=== PATIENT | female | born 1940 | race Caucasian/White ===

== ENCOUNTER 2022-07-16 18:41 | Emergency (ER) | payer MEDICARE, SELFPAY ==
--- NOTE | ~2022-07-16 | CT_ITS ---
EXAMINATION: CT HEAD WITHOUT CONTRAST CT CERVICAL SPINE WITHOUT CONTRAST CLINICAL INFORMATION: Trauma. COMPARISON: None available. TECHNIQUE: Contiguous axial imaging was performed from the skull base to vertex without intravenous administration of contrast. Contiguous axial imaging was performed from the upper chest through the skull base without intravenous administration of contrast. Coronal and sagittal reformats were obtained at the acquisition workstation. This CT examination was performed using dose optimization techniques as appropriate, variously including the following: *Automated exposure control. *Adjustment of mA and/or kV according to patient size (this includes techniques or standardized protocols for targeted exams where dose is matched to indication/reason for exam; i.e. extremities or head). *Use of iterative reconstruction technique. DLP: 961 mGy-cm FINDINGS: Head: There is no evidence of acute intracranial hemorrhage or edematous territorial infarction. Lynch-white matter differentiation is preserved. Scattered and partially confluent hypoattenuation in the periventricular and deep white matter are consistent with moderate microangiopathy. Proportional prominence of the ventricles and sulcal spaces without evidence of obstructive hydrocephalus. No abnormal mass effect or midline shift. No extra-axial fluid collections. Calcific atherosclerotic disease of the intracranial internal carotid arteries. No hyperdense vessel sign. No acute soft tissue or osseous abnormalities. Mild mucosal thickening of the paranasal sinuses. Moderate rightward nasal septal deviation. The mastoid air cells and middle ear cavities are clear. Bilateral lens extractions. Cervical Spine: The atlantooccipital and atlantoaxial articulations remain well aligned. Straightening of the normal cervical lordosis. Mild degenerative anterolistheses of C5 on C6 and C7 on T1. Ankylosis of C3-C4. No evidence of acute fracture or subluxation. The vertebral body heights are maintained. Advanced degenerative disc disease at C5-C6 and C6-C7. Moderate degenerative disc disease at all additional levels. Facet and uncovertebral joint arthropathy leads osseous encroachment on the neural foramina at C4-C5 and C5-C6. There is no prevertebral soft tissue swelling. The thyroid gland and remaining cervical soft tissues are within normal limits. The lung apices demonstrate no abnormalities. CT/CT cervical spine wo IV con IMPRESSION: 1. No evidence of acute intracranial hemorrhage or edematous territorial infarction. Moderate underlying microangiopathy and generalized cerebral volume loss. 2. No evidence of acute fracture or traumatic subluxation of the cervical spine. Moderate multilevel degenerative spondyloarthropathy of the cervical spine.
--- NOTE | ~2022-07-16 | XR_ITS ---
EXAMINATION: Chest, dorsal and lumbar spine. CLINICAL INDICATION: Weakness. COMPARISON: None. TECHNIQUE: Lumbar spine 3 views. Thoracic spine 3 views. Chest one view. FINDINGS: Chest: The lungs are hypoexpanded but clear of acute process. There is no pleural effusion. Heart size and pulmonary vascularity is normal. No gross bony abnormality seen. Dorsal spine. There is maintained thoracic kyphosis. The vertebral heights, alignment and disc heights are normal. No acute fracture, lytic or sclerotic process seen. The paravertebral soft tissues are normal. Lumbar spine: There is normal lumbar lordosis. There is grade 1 anterolisthesis L4 L4 L5 and mild loss of L5-S1 and T12/L1 disc heights. No aggressive lytic or sclerotic process seen. XR/XR chest 1V IMPRESSION: 1. Unremarkable chest exam. 2. Unremarkable dorsal spine exam. 3. Grade 1 anterolisthesis L4 over L5. Mild degenerative disc changes L5-S1 and T12-L1 disc levels. No acute fracture seen.
--- NOTE | ~2022-07-16 | XR_ITS ---
EXAMINATION: Chest, dorsal and lumbar spine. CLINICAL INDICATION: Weakness. COMPARISON: None. TECHNIQUE: Lumbar spine 3 views. Thoracic spine 3 views. Chest one view. FINDINGS: Chest: The lungs are hypoexpanded but clear of acute process. There is no pleural effusion. Heart size and pulmonary vascularity is normal. No gross bony abnormality seen. Dorsal spine. There is maintained thoracic kyphosis. The vertebral heights, alignment and disc heights are normal. No acute fracture, lytic or sclerotic process seen. The paravertebral soft tissues are normal. Lumbar spine: There is normal lumbar lordosis. There is grade 1 anterolisthesis L4 L4 L5 and mild loss of L5-S1 and T12/L1 disc heights. No aggressive lytic or sclerotic process seen. XR/XR lumbar spine 2-3V IMPRESSION: 1. Unremarkable chest exam. 2. Unremarkable dorsal spine exam. 3. Grade 1 anterolisthesis L4 over L5. Mild degenerative disc changes L5-S1 and T12-L1 disc levels. No acute fracture seen.
--- NOTE | ~2022-07-16 | XR_ITS ---
EXAMINATION: Chest, dorsal and lumbar spine. CLINICAL INDICATION: Weakness. COMPARISON: None. TECHNIQUE: Lumbar spine 3 views. Thoracic spine 3 views. Chest one view. FINDINGS: Chest: The lungs are hypoexpanded but clear of acute process. There is no pleural effusion. Heart size and pulmonary vascularity is normal. No gross bony abnormality seen. Dorsal spine. There is maintained thoracic kyphosis. The vertebral heights, alignment and disc heights are normal. No acute fracture, lytic or sclerotic process seen. The paravertebral soft tissues are normal. Lumbar spine: There is normal lumbar lordosis. There is grade 1 anterolisthesis L4 L4 L5 and mild loss of L5-S1 and T12/L1 disc heights. No aggressive lytic or sclerotic process seen. XR/XR thoracic spine 3V IMPRESSION: 1. Unremarkable chest exam. 2. Unremarkable dorsal spine exam. 3. Grade 1 anterolisthesis L4 over L5. Mild degenerative disc changes L5-S1 and T12-L1 disc levels. No acute fracture seen.
[2022-07-16 18:49] VITALS: BP 120/66; BP 154/75; PULSE 61; PULSE 68; RESP 16; TEMP 36.6; O2SAT 98; O2SAT 99; BMI 26.4
--- NOTE | 2022-07-16 19:02 | ECG_ITS ---
Test Reason : FALL Blood Pressure : / mmHG Vent. Rate : 057 BPM Atrial Rate : 057 BPM P-R Int : 218 ms QRS Dur : 088 ms QT Int : 442 ms P-R-T Axes : 020 -12 -01 degrees QTc Int : 430 ms Sinus bradycardia with marked sinus arrhythmia with 1st degree A-V block Otherwise normal ECG No previous ECGs available Referred By: Guanako Grace Electronically Signed By:Ad Jones
--- NOTE | 2022-07-16 19:10 | ED_ITS ---
HPI - General Adult General Chief complaint: Fall Stated complaint: fall Time Seen by Provider: 07/16/22 18:44 Source: patient, EMS and RN notes reviewed Mode of arrival: EMS Limitations: no limitations History of Present Illness HPI narrative: 82-year-old female presents for evaluation after a fall. She states that she has been very stressed. She states that she has chronic right knee pain and takes Percocet for it. She also drink alcohol due to her stress She states that when she got up to go to the bathroom she walked out of the room and then ?lost my balance and fell. ? She does state that her had mentioned he want to call the ambulance prior to the patient getting up falling For the patient she states that the told her ?you look peculiar. ? The patient did not complain of any chest pain, dizziness, headaches or anything prior to her fall Patient reports that she is stressed about in issue with her car, her family visiting from [place], her had a recent surgery due to cancer. She states this led her to drink alcohol tonight at dinner but she usually does not She denies any loss of consciousness when she fell but does admit that she hit the back of her head. She complains of mid to lower back pain Denies any numbness or tingling Related Data Allergies Allergy/AdvReac Type Severity Reaction Status Date / Time Tetanus Vaccines and Toxoid Allergy Unknown UNK Unverified 12/07/19 15:03 [TETANUS] Review of Systems Constitutional: Constitutional: Reports as per HPI, Denies chills, Denies fat igue, Denies fever(s) and Denies headache(s) ENT: Denies headache(s) Cardiovascular: Cardiovascular: Denies chest pain and Denies dyspnea Respiratory: Respiratory: Denies cough and Denies dyspnea Gastrointestinal: Gastrointestinal: Denies abdominal pain, Denies constipation and Denies vomiting Genitourinary: Genitourinary: Denies dysuria Musculoskeletal: Musculoskeletal: Reports back pain and Reports arthralgias (Right knee pain) Neurologic: Denies headache(s) and Denies focal weakness Endocrine: Endocrine: Denies fatigue [facility] Social History Social History Advance Directives: No Advance Directives Information Provided: No Physical Exam ED Vital Signs: Vital Signs - 24 hr 07/16/22 18:49 07/16/22 19:20 07/16/22 20:53 Temperature 98 F 97.9 F 98.4 F Pulse Rate 61 57 62 Respiratory Rate 16 16 13 Blood Pressure 154/75 H 149/83 H 144/84 H Pulse Oximetry 98 97 96 Oxygen Delivery Method Room Air Room Air BMI result Body Mass Index 26.4 Const General: healthy appearing, comfortable, no acute distress, alert and awake Nutritional Appearance: well nourished Orientation/consciousness: patient oriented x3 HENMT Head: Yes normocephalic and Yes atraumatic Throat: Yes posterior oropharynx normal Eyes Eyelids: Yes eyelids normal Conjunctivae: conjunctivae normal Sclerae: sclerae normal Corneas: corneas normal Pupils: Equal, round and reactive pupils present EOM: EOMs intact bilaterally Neck Other: Patient is in a C-collar. No C-spine tenderness Resp Effort & Inspection: normal respiratory effort, able to speak in complete sentences, no audible wheezes and not labored Auscultation: clear to auscultation bilaterally Cardio Rate: regular rate Rhythm: regular rhythm GI Inspection: No distended Palpation (GI): Soft to palpation, not firm, nontender, no guarding and not rigid Auscultation: normoactive bowel sounds Back/Spine/Pelvis Other: Tenderness palpation of the lower thoracic spine and the lumbar spine. No step- offs or deformities. Cervical Spine: collar present Skin General skin exam: no rashes or lesions noted and elasticity normal Neuro General: patient oriented x3 Cranial nerves: Yes CN's II-XII intact bilaterally, Yes Equal, round and reactive pupils present and Yes Bilaterally intact EOM present Cognition (Neuro): normal cognition Extrem Other: Moving all extremities well without any obvious deformities. No shortening of the lower extremities bilaterally. Course Reevaluation(s) Reevaluation #1: Patient's workup thus far reassuring. CT spine cleared with imaging. Patient can now be brought over for x-ray for thoracic and lumbar spine. Time: 20:52 Reevaluation #2: Discussed patient's x-ray imaging with the patient I did not show any evidence of acute traumatic injuries. She is requesting more pain medication prior to discharge as she takes scheduled pain medication at home which she has not yet had. I ordered a dose of oxycodone 5 mg p.o. Time: 22:39 Medications Administered Discontinued Medications Generic Name Dose Route Start Last Admin Trade Name Freq PRN Reason Stop Dose Admin Acetaminophen 975 mg 07/16/22 19:01 07/16/22 19:40 Acetaminophen 325 Mg Tablet PO 07/16/22 19:02 975 mg ONCE ONE Administration Medical Decision Making Medical Decision Making [facility] Narrative: Patient reports that she lost her balance before falling and she is blaming her mix of Percocet, Klonopin and alcohol prior to falling. She denies any chest pain, shortness of breath, palpitations or dizziness. She does complain of chronic right knee pain which is unchanged. Will rate is unclear why the patient's stated that he wants to call the ambulance stay the patient was on well prior to her falling. Will check labs, EKG, CT scan of brain and cervical spine. The patient is well-appearing. The patient does not have C- spine tenderness, but I cannot clear her cervical spine as she reports that she was drinking alcohol today Differential Diagnosis Polypharmacy Substance abuse Mechanical fall Syncope Cardiac arrhythmia Intracranial hemorrhage Cervical fracture Compression fracture Lab Data [facility] Lab Attestation statement: I reviewed the patient's lab results. No significant lab abnormalities 07/16/22 19:13 07/16/22 19:13 Labs: Lab Results 07/16/22 07/16/22 07/16/22 Range/Units 19:13 19:13 19:13 WBC 5.7 (4.8-10.8) X10*3/uL RBC 4.14 L (4.20-5.50) X10*6/uL Hgb 13.2 (12.0-16.0) g/dl Hct 38.5 (37.0-47.0) % MCV 93.0 (80.0-98.0) fL MCH 31.9 (27.0-33.0) pg MCHC 34.3 (31.0-35.0) g/dl RDW 13.9 (11.0-16.0) % Plt Count 257 (160-400) X10*3/uL MPV 9.0 L (9.4-12.3) fL Immature Gran % (Auto) 1.1 H (0.0-0.4) % Neut % (Auto) 62.2 (45-73) % Lymph % (Auto) 28.5 (20-40) % [place] % (Auto) 6.0 (2-11) % Eos % (Auto) 1.8 (0-4) % Baso % (Auto) 0.4 (0-2) % Lymph # (Auto) 1.6 (1.2-4.9) X10*3/uL [place] # (Auto) 0.3 (0.1-1.2) X10*3/uL Eos # (Auto) 0.1 (0.0-0.4) X10*3/uL Baso # (Auto) 0.0 (0.0-0.2) X10*3/uL Abs Immat Gran (auto) 0.06 H (0.00-0.03) X10*3/uL Absolute Neuts (auto) 3.6 (2.0-8.3) x10*3/uL Absolute Nucleated RBC 0.000 (0.0-0.012) X10*3/uL Nucleated RBC % (auto) 0.0 (0.0-0.2) /100WBC PT 11.3 (10.0-13.1) SEC INR 1.0 (0.9-1.1) APTT 27.1 (26.0-36.4) SEC Sodium 139 (135-145) mmol/L Potassium 4.4 (3.3-5.1) mmol/L Chloride 102 (96-108) mmol/L Carbon Dioxide 28 (22-29) mmol/L Anion Gap 13 (12-20) BUN 17 H (9-16) mg/dL Creatinine 0.77 (0.5-1.4) mg/dL Estim Creat Clear Calc 47.3 Estimated GFR > 60 Random Glucose 85 (60-115) mg/dL Calcium 9.2 (8.4-10.2) mg/dL Magnesium 2.5 (1.6-2.6) mg/dL Total Bilirubin 0.4 (0.0-1.0) mg/dL AST 22 (5-31) U/L ALT 16 (0-31) U/L Alkaline Phosphatase 52 (39-117) U/L Troponin I High Sens (<3.5-17.0) ng/L Total Protein 6.9 (6.5-8.0) g/dL Albumin 4.3 (3.5-5.0) g/dL Lipase 20 (8-78) U/L Ethyl Alcohol 45 mg/dL 07/16/22 Range/Units 19:13 WBC (4.8-10.8) X10*3/uL RBC (4.20-5.50) X10*6/uL Hgb (12.0-16.0) g/dl Hct (37.0-47.0) % MCV (80.0-98.0) fL MCH (27.0-33.0) pg MCHC (31.0-35.0) g/dl RDW (11.0-16.0) % Plt Count (160-400) X10*3/uL MPV (9.4-12.3) fL Immature Gran % (Auto) (0.0-0.4) % Neut % (Auto) (45-73) % Lymph % (Auto) (20-40) % [place] % (Auto) (2-11) % Eos % (Auto) (0-4) % Baso % (Auto) (0-2) % Lymph # (Auto) (1.2-4.9) X10*3/uL [place] # (Auto) (0.1-1.2) X10*3/uL Eos # (Auto) (0.0-0.4) X10*3/uL Baso # (Auto) (0.0-0.2) X10*3/uL Abs Immat Gran (auto) (0.00-0.03) X10*3/uL Absolute Neuts (auto) (2.0-8.3) x10*3/uL Absolute Nucleated RBC (0.0-0.012) X10*3/uL Nucleated RBC % (auto) (0.0-0.2) /100WBC PT (10.0-13.1) SEC INR (0.9-1.1) APTT (26.0-36.4) SEC Sodium (135-145) mmol/L Potassium (3.3-5.1) mmol/L Chloride (96-108) mmol/L Carbon Dioxide (22-29) mmol/L Anion Gap (12-20) BUN (9-16) mg/dL Creatinine (0.5-1.4) mg/dL Estim Creat Clear Calc Estimated GFR Random Glucose (60-115) mg/dL Calcium (8.4-10.2) mg/dL Magnesium (1.6-2.6) mg/dL Total Bilirubin (0.0-1.0) mg/dL AST (5-31) U/L ALT (0-31) U/L Alkaline Phosphatase (39-117) U/L Troponin I High Sens < 2.7 (<3.5-17.0) ng/L Total Protein (6.5-8.0) g/dL Albumin (3.5-5.0) g/dL Lipase (8-78) U/L Ethyl Alcohol mg/dL Independent Interpretation I performed an independent interpretation of an: EKG Interpretation: Sinus rhythm without ischemia Radiology Impression Discussion of test interpretation with radiology: I have reviewed the radiologist's reading. Radiologist Impression: CT cervical spine with multilevel degenerative disc disease, no cervical fracture or subluxation CT brain without acute traumatic injury Discharge Plan Discharge Clinical Impression: Fall, Back pain Patient Disposition: Home, Self-Care Instructions: Back Pain (ED) Additional Instructions: Your workup in the emergency department today showed no evidence of significant injury. This includes a CT scan of your brain, cervical spine. We also did x-rays of your thoracic and lumbar spine Your blood work was reassuring and your EKG was also reassuring. Continue your home medication regimen Follow-up with your primary doctor
--- NOTE | 2022-07-16 19:13 | PC.NURSE ---
Pt. on monitoring tech at this time.
[2022-07-16 19:20] VITALS: BP 149/83; PULSE 57; RESP 16; TEMP 36.6; O2SAT 97
[2022-07-16 19:24] LABS: MANUAL DIFF FLAG NO
[2022-07-16 19:35] LABS: Basophils Percent Auto 0.4 % (0-2); Eosinophils Absolute Auto 0.1 X10*3/uL (0.0-0.4); Eosinophils Percent Auto 1.8 % (0-4); Hematocrit 38.5 % (37.0-47.0); Hemoglobin 13.2 g/dl (12.0-16.0); Imm Gran Abs Auto 0.06 X10*3/uL (0.00-0.03); Imm Gran Pct Auto 1.1 % (0.0-0.4); Lymphocytes Absolute Auto 1.6 X10*3/uL (1.2-4.9); Lymphocytes Percent Auto 28.5 % (20-40); Mean Corpuscular HGB Conc 34.3 g/dl (31.0-35.0); Mean Corpuscular Hemoglobin 31.9 pg (27.0-33.0); Monocytes Absolute Auto 0.3 X10*3/uL (0.1-1.2); Neutrophils Absolute Auto 3.6 x10*3/uL (2.0-8.3); Neutrophils Percent Auto 62.2 % (45-73); Platelet Count 257 X10*3/uL (160-400); Red Blood Count 4.14 X10*6/uL (4.20-5.50); Red Cell Distribution Width 13.9 % (11.0-16.0); White Blood Count 5.7 X10*3/uL (4.8-10.8)
[2022-07-16 19:40] LABS: Alanine Aminotransferase 16 U/L (0-31); Albumin Level 4.3 g/dL (3.5-5.0); Alkaline Phosphatase 52 U/L (39-117); Anion Gap 13 (12-20); Aspartate Amino Transferase 22 U/L (5-31); Bilirubin Total 0.4 mg/dL (0.0-1.0); Blood Urea Nitrogen 17 mg/dL (9-16); Calcium 9.2 mg/dL (8.4-10.2); Carbon Dioxide 28 mmol/L (22-29); Chloride 102 mmol/L (96-108); Creatinine Clr Calc Pharmacy 47.3; Estimated Glomerular Filt Rate > 60; Ethanol 45 mg/dL; Glucose Random 85 mg/dL (60-115); Lipase 20 U/L (8-78); Magnesium 2.5 mg/dL (1.6-2.6); Potassium 4.4 mmol/L (3.3-5.1); Sodium 139 mmol/L (135-145); Total Protein 6.9 g/dL (6.5-8.0)
[2022-07-16] MEDS: Acetaminophen 325 MG TABLET 975 MG PO (19:40)
[2022-07-16 19:51] LABS: Troponin-I High Sensitivity < 2.7 ng/L (<3.5-17.0)
[2022-07-16 20:13] LABS: Prothrombin Time 11.3 SEC (10.0-13.1)
[2022-07-16 20:16] LABS: Partial Thromboplastin Time 27.1 SEC (26.0-36.4)
[2022-07-16 20:53] VITALS: BP 144/84; PULSE 62; RESP 13; TEMP 36.9; O2SAT 96
[2022-07-16] MEDS: oxyCODONE HCl Immed Release 5 MG TABLET PO (22:48)
== END 2022-07-16 22:56 | disposition home or self-care (01) ==
PROVIDERS: Physician Assistant; Emergency Provider Emergency Medicine
DX: M54.50 Low back pain, unspecified (principal); G89.29 Other chronic pain; M25.561 Pain in right knee; R00.1 Bradycardia, unspecified; I44.0 Atrioventricular block, first degree; M47.812 Spondylosis without myelopathy or radiculopathy, cervical region; Z91.81 History of falling; Z79.891 Long term (current) use of opiate analgesic
CPT/HCPCS: 36415; 70450; 71045; 72072; 72100; 72125; 80053; 82077; 83690; 83735; 84484; 85025; 85610; 85730; 93005; 99284

== ENCOUNTER 2023-05-06 11:56 | Emergency (ER) | payer MEDICARE, SELFPAY ==
--- NOTE | ~2023-05-06 | XR_ITS ---
EXAMINATION: XR CHEST CLINICAL INFORMATION: Chest pain. COMPARISON: 07/16/2022 TECHNIQUE: 2 views of the chest were obtained. FINDINGS: The lungs appear hyperexpanded. Potential nodule right lung base. No focal consolidation. No pleural effusion. Thoracic kyphosis. Status post vertebral body augmentation in the lower thoracic spine. XR/XR chest 2V IMPRESSION: Potential nodule right lung base. Advise dedicated chest CT.
--- NOTE | 2023-05-06 12:00 | ECG_ITS ---
Test Reason : CHEST PAIN Blood Pressure : / mmHG Vent. Rate : 080 BPM Atrial Rate : 080 BPM P-R Int : 192 ms QRS Dur : 080 ms QT Int : 382 ms P-R-T Axes : 040 -04 -02 degrees QTc Int : 440 ms Sinus rhythm with Premature atrial complexes Otherwise normal ECG When compared with ECG of 16-JUL-2022 19:21, Premature atrial complexes are now Present Referred By: Deepika Arriaza Electronically Signed By:Ad Jones
--- NOTE | 2023-05-06 12:08 | ED_ITS ---
HPI - General Adult General Chief complaint: Chest Pain Stated complaint: Chest pain - referred by PCP Time Seen by Provider: 05/06/23 14:42 Source: patient and family () Mode of arrival: ambulatory Limitations: no limitations History of Present Illness HPI narrative: Patient is an 83-year-old female presenting to the ED with complaint of intermittent chest and back pain for months. Laparoscopic Spinal fusion 03/30, pain since. Reports high BP, PCP prescribed medication for this but patient has not started taking, patient was advised by PCP's nurse to come to the ED for evaluation of the chest pain. No SOB, no fever, no chills, no lightheadedness, no dizziness. Related Data Allergies Allergy/AdvReac Type Severity Reaction Status Date / Time Tetanus Vaccines and Toxoid Allergy Unknown UNK Verified 05/06/23 12:08 [TETANUS] Review of Systems 2 Review of Systems: All other systems are reviewed and are negative Constitutional: Reports as per HPI and Reports no additional constitutional complaints Eyes: Reports as per HPI and Reports no additional eye complaints Reports system reviewed and no additional complaints, except as documented Cardiovascular: Reports as per HPI and Reports no additional cardiovascular complaints Respiratory: Reports as per HPI and Reports no additional respiratory complaints Gastrointestinal: Reports as per HPI and Reports no additional gastrointestinal complaints Genitourinary: Reports no additional female genitourinary complaints Musculoskeletal: Reports no additional musculoskeletal complaints Skin/Breast: Reports system reviewed and no additional complaints, except as docu Psychiatric: Reports no additional psychiatric complaints Endocrine: Reports no additional endocrine complaints Hematologic/Lymphatic: Reports no additional hematologic/lymphatic complaints Allergic/Immunologic: Reports no additional allergic/immunologic complaints Reports system reviewed and no additional complaints, except as documented and Reports Abnormal speech present [facility] Social History Social History Advance Directives: No Physical Exam ED Vital Signs: Vital Signs - 24 hr 05/06/23 12:09 05/06/23 14:53 Temperature 98 F 98.1 F Pulse Rate 72 78 Respiratory Rate 18 18 Blood Pressure 154/79 H 151/80 H Pulse Oximetry 98 99 Oxygen Delivery Method Room Air Room Air BMI result Body Mass Index 22.1 Vital signs have been reviewed and appear to be correct. Blood pressure elevated. Heart rate normal. Respiratory rate normal. Temperature normal. Oxygen saturation normal. Appearance: Alert. Oriented X3. No acute distress. Head: Normal external exam. Normocephalic. Atraumatic. No Bang signs noted. No raccoon eyes noted Eyes: PERRLA. EOMI. Conjunctiva and sclera normal. Eyelids normal. ENT: TM's Normal. Pharynx normal. Uvula midline. Moist mucous membranes. No trismus noted. No drooling noted. No muffled voice noted. Neck: Normal inspection. Neck supple. FROM. No adenopathy. Thyroid Normal. No meningeal signs. No neck mass noted. CVS: Normal heart rate and rhythm. Heart sound normal. No murmurs noted. Pulses normal throughout. Respiratory: No respiratory distress. Painless inspiration. Breath sounds normal. No wheezes/rales/rhonchi noted. Chest nontender. No accessory muscle usage noted or decreased air movement noted. Abdomen: Soft and nontender. Bowel sounds normal in all 4 quadrants. No distention noted. No organomegaly noted. No visible injury noted. Back: No CVA tenderness. Full range of motion noted. Skin: Skin warm and dry. Normal skin color. Normal skin turgor. No rashes/lesions/lacerations noted. Extremities: No lower extremity edema. Extremities exhibit normal range of motion. Extremities nontender. Neuro: Oriented X 3. Cranial nerve exam: II-XII are grossly intact No motor deficit. No sensory deficit. Reflexes normal. Course Course Course Narrative: This is a rapid medical exam: Additional HPI, ROS, PE not included below will be deferred to primary provider. Patient is an 83-year-old female presenting to the ED with complaint of intermittent chest and back pain for months. Spinal fusion 03/30, pain since. Reports high BP, PCP prescribed medication for this but patient has not started taking, wanted to see PCP in person first. Plan: EKG, CXR, labs Reevaluation(s) Reevaluation #1: 83-year-old female complaining of chest pain and back pain, patient had laparoscopic spinal fusion surgery 6 weeks ago and still complaining of back pain from the surgery, patient had a negative troponin x2 EKG is not suggesting ACS, patient had a negative D-dimer. Time: 16:00 Medical Decision Making Differential Diagnosis Differential Diagnoses: The differential diagnosis associated with the presentation includes (Pneumonia, pneumothorax, pleural effusion, ACS, pulmonary embolism, severe anemia, electrolyte abnormality.) Admission/Observation Consideration of admission/observation: Escalation of care including admission/observation considered Lab Data MDM Lab Attestation statement: I reviewed the patient's lab results. 05/06/23 12:17 05/06/23 12:17 Labs: Lab Results 05/06/23 Range/Units 12:17 WBC 8.0 (4.8-10.8) X10*3/uL RBC 4.42 (4.20-5.50) X10*6/uL Hgb 13.8 (12.0-16.0) g/dl Hct 41.0 (37.0-47.0) % MCV 92.8 (80.0-98.0) fL MCH 31.2 (27.0-33.0) pg MCHC 33.7 (31.0-35.0) g/dl RDW 13.3 (11.0-16.0) % Plt Count 289 (160-400) X10*3/uL MPV 8.7 L (9.4-12.3) fL Immature Gran % (Auto) 0.2 (0.0-0.4) % Neut % (Auto) 76.3 H (45-73) % Lymph % (Auto) 15.1 L (20-40) % [place] % (Auto) 6.5 (2-11) % Eos % (Auto) 1.5 (0-4) % Baso % (Auto) 0.4 (0-2) % Lymph # (Auto) 1.2 (1.2-4.9) X10*3/uL [place] # (Auto) 0.5 (0.1-1.2) X10*3/uL Eos # (Auto) 0.1 (0.0-0.4) X10*3/uL Baso # (Auto) 0.0 (0.0-0.2) X10*3/uL Abs Immat Gran (auto) 0.02 (0.00-0.03) X10*3/uL Absolute Neuts (auto) 6.1 (2.0-8.3) x10*3/uL Absolute Nucleated RBC 0.000 (0.0-0.012) X10*3/uL Nucleated RBC % (auto) 0.0 (0.0-0.2) /100WBC PT 11.9 (11.1-13.3) SEC INR 1.0 (0.9-1.1) Sodium 140 (135-145) mmol/L Potassium 4.1 (3.3-5.1) mmol/L Chloride 104 (96-108) mmol/L Carbon Dioxide 25 (22-29) mmol/L Anion Gap 15 (12-20) BUN 11 (9-16) mg/dL Creatinine 0.82 (0.5-1.4) mg/dL Estim Creat Clear Calc 42.2 Estimated GFR > 60 Random Glucose 94 (60-115) mg/dL Calcium 9.9 D (8.4-10.2) mg/dL Total Bilirubin 0.6 (0.0-1.0) mg/dL AST 17 (5-31) U/L ALT 11 (0-31) U/L Alkaline Phosphatase 68 (39-117) U/L Troponin I High Sens < 2.7 (<3.5-17.0) ng/L Total Protein 7.5 (6.5-8.0) g/dL Albumin 4.4 (3.5-5.0) g/dL Independent Interpretation I performed an independent interpretation of an: EKG (Normal sinus rhythm with PACs, normal intervals, no ST-T changes. No change from 07/16/2022.) and Plain X-Ray (Chest:Potential nodule right lung base. Advise dedicated chest CT.) Discharge Plan Discharge Clinical Impression: Chest pain, Incidental pulmonary nodule Patient Disposition: Home, Self-Care Instructions: Chest Pain (ED), Pulmonary Nodules (ED) Referrals: Sandro Calvo PA [Primary Care Provider] -
[2023-05-06 12:09] VITALS: BP 154/79; PULSE 72; RESP 18; TEMP 36.6; O2SAT 98; BMI 22.1
[2023-05-06 12:22] LABS: MANUAL DIFF FLAG NO
[2023-05-06 12:23] LABS: Basophils Percent Auto 0.4 % (0-2); Eosinophils Absolute Auto 0.1 X10*3/uL (0.0-0.4); Eosinophils Percent Auto 1.5 % (0-4); Hemoglobin 13.8 g/dl (12.0-16.0); Imm Gran Abs Auto 0.02 X10*3/uL (0.00-0.03); Imm Gran Pct Auto 0.2 % (0.0-0.4); Lymphocytes Absolute Auto 1.2 X10*3/uL (1.2-4.9); Lymphocytes Percent Auto 15.1 % (20-40); Mean Corpuscular HGB Conc 33.7 g/dl (31.0-35.0); Mean Corpuscular Hemoglobin 31.2 pg (27.0-33.0); Mean Corpuscular Volume 92.8 fL (80.0-98.0); Mean Platelet Volume 8.7 fL (9.4-12.3); Monocytes Absolute Auto 0.5 X10*3/uL (0.1-1.2); Monocytes Percent Auto 6.5 % (2-11); Neutrophils Absolute Auto 6.1 x10*3/uL (2.0-8.3); Neutrophils Percent Auto 76.3 % (45-73); Platelet Count 289 X10*3/uL (160-400); Red Blood Count 4.42 X10*6/uL (4.20-5.50); Red Cell Distribution Width 13.3 % (11.0-16.0)
[2023-05-06 12:32] LABS: Prothrombin Time 11.9 SEC (11.1-13.3)
[2023-05-06 12:36] LABS: Alanine Aminotransferase 11 U/L (0-31); Albumin Level 4.4 g/dL (3.5-5.0); Alkaline Phosphatase 68 U/L (39-117); Anion Gap 15 (12-20); Aspartate Amino Transferase 17 U/L (5-31); Bilirubin Total 0.6 mg/dL (0.0-1.0); Blood Urea Nitrogen 11 mg/dL (9-16); Calcium 9.9 mg/dL (8.4-10.2); Carbon Dioxide 25 mmol/L (22-29); Chloride 104 mmol/L (96-108); Creatinine Clr Calc Pharmacy 42.2; Estimated Glomerular Filt Rate > 60; Glucose Random 94 mg/dL (60-115); Potassium 4.1 mmol/L (3.3-5.1); Sodium 140 mmol/L (135-145); Total Protein 7.5 g/dL (6.5-8.0)
[2023-05-06 12:44] LABS: Troponin-I High Sensitivity < 2.7 ng/L (<3.5-17.0)
[2023-05-06 14:53] VITALS: BP 151/80; PULSE 78; RESP 18; TEMP 36.7; O2SAT 99
[2023-05-06 15:16] LABS: D Dimer High Sensitivity 214 NG/ML
[2023-05-06 15:27] LABS: Troponin-I High Sensitivity 3.3 ng/L (<3.5-17.0)
== END 2023-05-06 16:19 | disposition home or self-care (01) ==
PROVIDERS: Registered Nurse Emergency; Emergency Provider Emergency Medicine; PCP Physician Assistant Medical
DX: R07.9 Chest pain, unspecified (principal)
CPT/HCPCS: 36415; 71046; 80053; 84484; 85025; 85379; 85610; 93005; 99283; 99284

== ENCOUNTER → 2023-05-06 12:00 | Outpatient (BNV) | payer MEDICARE, SELFPAY | PROVIDERS: Emergency Provider Emergency Medicine; PCP Physician Assistant Medical; Visit Provider Internal Medicine Cardiovascular Disease | DX: I49.1 Atrial premature depolarization (principal) | CPT/HCPCS: 93010 ==

== ENCOUNTER 2023-10-25 22:56 | Emergency (ER) | payer MEDICARE, SELFPAY ==
--- NOTE | ~2023-10-25 | CT_ITS ---
EXAMINATION: CT CHEST WITH CONTRAST CLINICAL INFORMATION: Trauma. Left rib pain. COMPARISON: None available. TECHNIQUE: Multidetector volumetric CT imaging of the chest was obtained after the administration of 65 mL of Omnipaque 350 intravenous contrast without immediate adverse reactions. Axial MIP volume rendering provided. Sagittal and coronal reformatted images were obtained. This CT examination was performed using dose optimization techniques as appropriate, variously including the following: *Automated exposure control *Adjustment of mA and/or kV according to patient size (this includes techniques or standardized protocols for targeted exams where dose is matched to indication/reason for exam; i.e. extremities or head) *Use of iterative reconstruction technique DLP: 198 mGy-cm FINDINGS: AEROSPACE STRESS ENGINEER: Unremarkable LUNGS: Minimal scarring at the lung bases. There is no evidence for active infiltrate. MEDIASTINUM: The heart is normal in size. There is no pericardial effusion. There is no significant lymph node enlargement. There is a mildly distended and fluid-filled esophagus. PLEURA: There is no pleural effusion. No pleural mass or thickening. AXILLA: No lymphadenopathy. UPPER ABDOMEN: Unremarkable OSSEOUS STRUCTURES: There are minimally displaced fractures of the left lateral eighth and ninth ribs. Bony structures are osteopenic. Prior T10 and T11 vertebroplasty's are noted. CT/CT chest w IV con IMPRESSION: 1. There are minimally displaced fractures of the lateral eighth and ninth ribs. There is no evidence for active infiltrate or pneumothorax. 2. There is a mildly distended and fluid-filled esophagus. Fleischner guidelines were followed.
[2023-10-25 23:02] VITALS: BP 153/74; BP 158/77; PULSE 67; PULSE 69; RESP 16; TEMP 36.6; O2SAT 97; O2SAT 98; BMI 20.9
[2023-10-26 03:12] VITALS: BP 154/79; PULSE 65; RESP 17; TEMP 36.6; O2SAT 98
--- NOTE | 2023-10-26 03:12 | ED.GENADULT ---
HPI - General Adult General Chief complaint: General Medical Stated complaint: L sided rib pain from striking counter Time Seen by Provider: 10/26/23 03:12 Source: patient and family Mode of arrival: EMS Limitations: no limitations History of Present Illness ED Provider: kanika SHARPE narrative: Patient has chronic pain syndrome started on gabapentin which she took for the 1st time was walking to the kitchen feeling little dizzy almost fell hitting her left lower ribs to the edge of the kitchen counter complaining of severe pain especially when she takes deep breath no other injuries Related Data Allergies Allergy/AdvReac Type Severity Reaction Status Date / Time Tetanus Vaccines and Toxoid Allergy Unknown UNK Verified 05/06/23 12:08 [TETANUS] Iodinated Contrast Media Allergy Unknown Verified 10/25/23 23:10 [Contrast Dye] Review of Systems Review of Systems: Yes all other systems are reviewed and are negative [facility] Social History Social History Smoked in Last 30 Days: No Use of substances other than those prescribed or required for medical reasons: No Advance Directives: No Advance Directives Information Provided: Yes Do you have a plan to hurt others: No Plan Physical Exam ED Vital Signs: Vital Signs - 24 hr 10/25/23 23:02 10/26/23 03:12 10/26/23 05:15 Temperature 97.9 F 97.8 F 99.1 F Pulse Rate 67 65 71 Respiratory Rate 16 17 Blood Pressure 158/77 H 154/79 H 160/70 H Pulse Oximetry 98 98 92 Oxygen Delivery Method Room Air Room Air Room Air BMI result Body Mass Index 20.9 Appearance: Alert. Oriented X3. No acute distress. Eyes: PERRLA, No Nystagmus ENT: Pharynx normal. Oral Mucosa moist atraumatic normocephalic Neck: Normal inspection. Neck supple. CVS: Normal heart rate and rhythm. Pulses normal. Respiratory: No respiratory distress. Equal air entry bilateral, no wheezing/rales/rhonchi tenderness left 8th and 9th rib in mid axillary area no ecchymosis Abdomen: Soft and nontender. Bowel sounds are present, no mass palpable, no CVA tenderness Skin: Skin warm and dry. Normal skin color. Normal skin turgor. Extremities: No lower extremity edema. No calf tenderness Neuro: Oriented X 3. No motor deficit. No sensory deficit.No cerebellar signs , cranial nerves II-XII intact Medications Administered Discontinued Medications Generic Name Dose Route Start Last Admin Trade Name Gauravq PRN Reason Stop Dose Admin Diphenhydramine HCl 25 mg 10/26/23 04:10 10/26/23 04:13 Diphenhydramine Hcl 50 Mg/Ml Vial IVPUSH 10/26/23 04:11 25 mg ONCE ONE Administration Iohexol 65 ml 10/26/23 04:30 10/26/23 04:34 Iohexol 350 Mg/Ml 100 Ml Infus..Btl IV 10/26/23 04:31 65 ml ONCE ONE Administration Methylprednisolone Sodium Succinate 125 mg 10/26/23 04:10 10/26/23 04:14 Methylprednisolone Sod Succ 125 Mg/2 Ml Vial IVPUSH 10/26/23 04:11 125 mg ONCE ONE Administration Morphine Sulfate 4 mg 10/26/23 03:15 10/26/23 03:31 Morphine Sulfate 4 Mg/Ml Cartridge IVPUSH 10/26/23 03:16 4 mg ONCE ONE Administration Protocol Ondansetron HCl 4 mg 10/26/23 03:15 10/26/23 03:31 Ondansetron Hcl 4 Mg/2 Ml Vial IVPUSH 10/26/23 03:16 4 mg ONCE ONE Administration Medical Decision Making Medical Decision Making [facility] Narrative: Patient with mechanical injury to the left lower ribs CT scan showed minimal displaced left 8th and 9th rib fracture without any internal injury will discharge patient home patient does have pain medications at home Differential Diagnosis Differential Diagnoses: The differential diagnosis associated with the presentation includes Rib fracture/lung contusion/splenic injury Lab Data [facility] Lab Attestation statement: I reviewed the patient's lab results. 10/26/23 03:25 10/26/23 03:25 Labs: Lab Results 10/26/23 Range/Units 03:25 WBC 8.1 (4.8-10.8) X10*3/uL RBC 3.82 L (4.20-5.50) X10*6/uL Hgb 12.0 (12.0-16.0) g/dl Hct 35.0 L (37.0-47.0) % MCV 91.6 (80.0-98.0) fL MCH 31.4 (27.0-33.0) pg MCHC 34.3 (31.0-35.0) g/dl RDW 13.5 (11.0-16.0) % Plt Count 239 (160-400) X10*3/uL MPV 8.9 L (9.4-12.3) fL Immature Gran % (Auto) 0.2 (0.0-0.4) % Neut % (Auto) 71.5 (45-73) % Lymph % (Auto) 18.8 L (20-40) % [place] % (Auto) 7.6 (2-11) % Eos % (Auto) 1.5 (0-4) % Baso % (Auto) 0.4 (0-2) % Lymph # (Auto) 1.5 (1.2-4.9) X10*3/uL [place] # (Auto) 0.6 (0.1-1.2) X10*3/uL Eos # (Auto) 0.1 (0.0-0.4) X10*3/uL Baso # (Auto) 0.0 (0.0-0.2) X10*3/uL Abs Immat Gran (auto) 0.02 (0.00-0.03) X10*3/uL Absolute Neuts (auto) 5.8 (2.0-8.3) x10*3/uL Absolute Nucleated RBC 0.000 (0.0-0.012) X10*3/uL Nucleated RBC % (auto) 0.0 (0.0-0.2) /100WBC PT 11.7 (11.1-13.3) SEC INR 1.0 (0.9-1.1) Sodium 140 (135-145) mmol/L Potassium 4.1 (3.3-5.1) mmol/L Chloride 106 (96-108) mmol/L Carbon Dioxide 25 (22-29) mmol/L Anion Gap 13 (12-20) BUN 15 (9-16) mg/dL Creatinine 0.84 (0.5-1.4) mg/dL Estim Creat Clear Calc 41.2 Estimated GFR > 60 Random Glucose 91 (60-115) mg/dL Calcium 9.7 (8.4-10.2) mg/dL Total Bilirubin 0.3 (0.0-1.0) mg/dL AST 20 (5-31) U/L ALT 15 (0-31) U/L Alkaline Phosphatase 50 (39-117) U/L Total Protein 6.6 (6.5-8.0) g/dL Albumin 4.0 (3.5-5.0) g/dL Independent Interpretation I performed an independent interpretation of an: CT Scan Radiology Impression Discussion of test interpretation with radiology: I have reviewed the radiologist's reading. Radiologist Impression: CT/CT chest w IV con IMPRESSION: 1. There are minimally displaced fractures of the lateral eighth and ninth ribs. There is no evidence for active infiltrate or pneumothorax. 2. There is a mildly distended and fluid-filled esophagus. Discharge Plan Discharge Clinical Impression: Left rib fracture Patient Disposition: Home, Self-Care Instructions: Rib Fracture (ED) Additional Instructions: Continue take your pain medication as prescribed by your pain clinic and apply Lidoderm patch daily at the painful area You have left 8th and 9th rib fracture minimal displaced Report to the ER if increased shortness of breath or sudden increase in the pain Print Language: Malay
[2023-10-26 03:29] LABS: Basophils Percent Auto 0.4 % (0-2); Eosinophils Absolute Auto 0.1 X10*3/uL (0.0-0.4); Eosinophils Percent Auto 1.5 % (0-4); Imm Gran Abs Auto 0.02 X10*3/uL (0.00-0.03); Imm Gran Pct Auto 0.2 % (0.0-0.4); Lymphocytes Absolute Auto 1.5 X10*3/uL (1.2-4.9); Lymphocytes Percent Auto 18.8 % (20-40); MANUAL DIFF FLAG NO; Mean Corpuscular HGB Conc 34.3 g/dl (31.0-35.0); Mean Corpuscular Hemoglobin 31.4 pg (27.0-33.0); Mean Corpuscular Volume 91.6 fL (80.0-98.0); Mean Platelet Volume 8.9 fL (9.4-12.3); Monocytes Absolute Auto 0.6 X10*3/uL (0.1-1.2); Monocytes Percent Auto 7.6 % (2-11); Neutrophils Absolute Auto 5.8 x10*3/uL (2.0-8.3); Neutrophils Percent Auto 71.5 % (45-73); Platelet Count 239 X10*3/uL (160-400); Red Blood Count 3.82 X10*6/uL (4.20-5.50); Red Cell Distribution Width 13.5 % (11.0-16.0); White Blood Count 8.1 X10*3/uL (4.8-10.8)
[2023-10-26] MEDS: ondansetron HCL 4 MG/2 ML VIAL IVPUSH (03:31)
[2023-10-26] MEDS: Morphine Sulfate 4 MG/ML CARTRIDGE IVPUSH (03:31)
[2023-10-26 03:35] LABS: Prothrombin Time 11.7 SEC (11.1-13.3)
[2023-10-26 03:44] LABS: Alanine Aminotransferase 15 U/L (0-31); Alkaline Phosphatase 50 U/L (39-117); Anion Gap 13 (12-20); Aspartate Amino Transferase 20 U/L (5-31); Bilirubin Total 0.3 mg/dL (0.0-1.0); Blood Urea Nitrogen 15 mg/dL (9-16); Calcium 9.7 mg/dL (8.4-10.2); Carbon Dioxide 25 mmol/L (22-29); Chloride 106 mmol/L (96-108); Creatinine Clr Calc Pharmacy 41.2; Estimated Glomerular Filt Rate > 60; Glucose Random 91 mg/dL (60-115); Potassium 4.1 mmol/L (3.3-5.1); Sodium 140 mmol/L (135-145); Total Protein 6.6 g/dL (6.5-8.0)
[2023-10-26] MEDS: diphenhydrAMINE HCL 50 MG/ML VIAL 25 MG IVPUSH (04:13)
[2023-10-26] MEDS: methylPREDNISolone Sod Succ 125 MG/2 ML VIAL IVPUSH (04:14)
[2023-10-26] MEDS: iohexoL 350 MG/ML 100 ML INFUS..BTL 65 ML IV (04:34)
[2023-10-26 05:15] VITALS: BP 160/70; PULSE 71; TEMP 37.3; O2SAT 92
[2023-10-26 06:59] VITALS: BP 160/70; PULSE 71; RESP 18; TEMP 37.3; O2SAT 92
== END 2023-10-26 07:00 | disposition home or self-care (01) ==
PROVIDERS: Emergency Provider Internal Medicine
DX: S22.42XA Multiple fractures of ribs, left side, initial encounter for closed fracture (principal); X58.XXXA Exposure to other specified factors, initial encounter; Y93.9 Activity, unspecified; Y92.9 Unspecified place or not applicable; Y99.9 Unspecified external cause status; R42 Dizziness and giddiness; G89.4 Chronic pain syndrome
CPT/HCPCS: 36415; 71260; 80053; 85025; 85610; 96374; 96375; 99284; J1200; J2270; J2405; J2919; Q9967

== ENCOUNTER 2024-01-07 09:29 | Outpatient (AMB) | payer MEDICARE, SELFPAY ==
--- NOTE | 2024-01-07 09:30 | HO.SPINEOV ---
Intake Visit Reasons: thoracic pain Intake Note: Mrs. Martinez is here today c/o back/knee pain. 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 HPI: This 83-year-old female suffered a T10-T11 thoracic fracture that was treated with kyphoplasty at [facility]. The patient states that since surgery she is in much more pain in that area. She can not sit as the kyphotic deformity presence into the chair and standing up also produces more pain. She denies neurological deficits in the form of weakness or sensory deficits. She is using narcotics to treat the pain and is desperate for solution. An epidural steroid injection was tried without success. The following conservative treatment options were tried without success antiinflammatories, tylenol, physician guided home exercise plan, cortisone shots Physical Exam: She has a thoracic deformity causing sagittal imbalance. Normal reflexes. No motor deficits Radiological Studies: MRI done at [facility] in June 2023 and July 2023 shows osteoporotic compression fractures T10-T11 treated with kyphoplasty causing a thoracic deformity Impression/Plan: This patient is suffering from severe thoracic pain due to sagittal imbalance. Unfortunately, I am not able to correct the kyphosis surgically due to poor bone quality. I explained my rationale to the patient on the hand of review of the images.. Thank you for allowing me to participate in your patients care. total time spent was 45 minutes in counseling ,coordination of plan, personal review of imaging, surgical decision making and subsequent plan Vito Marrero MD, PhD Sp[facility] Trained Neurosurgeon Director, [facility] Coding Level of Care Code New Pt Level 4 (78333) Diagnoses Deformity of thoracic vertebra M43.9
== END 2024-01-07 10:10 | disposition home or self-care (01) ==
PROVIDERS: PCP Physician Assistant Medical; Referring Provider Physician Assistant Medical; Visit Provider Neurological Surgery
DX: M43.9 Deforming dorsopathy, unspecified (principal)
CPT/HCPCS: 99204

== ENCOUNTER → 2024-01-07 09:29 | Outpatient (BNVA) | payer MEDICARE, SELFPAY | PROVIDERS: Visit Provider Neurological Surgery | DX: M43.9 Deforming dorsopathy, unspecified (principal) | CPT/HCPCS: 99202 ==

== ENCOUNTER 2025-01-27 14:07 | Outpatient (AMB) | payer MEDICARE, SELFPAY ==
[2025-01-27 14:09] VITALS: BP 150/80; PULSE 83; TEMP 37.1; O2SAT 98
--- NOTE | 2025-01-27 14:09 | AM.OFFWIN_ITS ---
Intake Vital Signs 01/27/25 14:09 Height 5 ft 3 in BP 150/80 H Blood Pressure Location Rt brachial Position Sitting Pulse 83 Pulse Source Pulse Oximeter Temp 98.7 F Temp Source Oral Pulse Oximetry (%) 98 Intake Visit Reasons: EP-Indigestion, diarrhea Allergies Tetanus Vaccines and Toxoid (TETANUS) Allergy (Unknown, Verified 01/27/25 14:09) UNK Iodinated Contrast Media (Contrast Dye) Allergy (Verified 01/27/25 14:09) Unknown Do you need a note to return to daycare/school/sports/work: No HPI HPI Comments History of Present Illness Details This is an 84-year-old female who presented to the walk-in clinic complaining of indigestion and heartburn x 2 days. She states that she has a burning sensation in her throat down into her chest, which is exacerbated by any food or liquid. Patient states she has been unable to tolerate liquids or solids since her symptoms starting. She has chronic pain requiring opioids. She denies any nausea/vomiting. She has had diarrhea today but states that this is a chronic issue for her and does not appear to be worse than usual. She denies any melena/hematochezia. She denies any mucus in the stool. She denies any shortness of breath. She denies any chest pain radiating into her arms. She denies any new or unusal food exposures. Review of Systems Const All systems reviewed & are unremarkable except as noted in HPI and below Reports no additional complaints Eyes Reports no additional complaints ENT Reports no additional complaints Card Reports no additional complaints Resp Reports no additional complaints GI Reports no additional complaints Reports no additional complaints Musc Reports no additional complaints Skin/Breast Reports system reviewed and no additional complaints, except as documented Neuro Reports no additional complaints Psych Reports no additional complaints Endo Reports no additional complaints Arron/Lymph Reports no additional complaints Aller/Immun Reports no additional complaints Physical Exam Exam Exam: Vital signs reviewed. Constitutional: Non-toxic appearing. No acute distress. Well-developed and well-nourished. HEENT: Normocephalic and atraumatic. PERRL/EOMI. Skin: Warm and dry. No rashes or lesions noted. Neck: Full and painless range of motion. No cervical lymphadenopathy. Cardio: Regular rate and rhythm. No murmurs, gallops, or rubs. No lower extremity edema. No JVD. Pulmonary: No respiratory distress. No accessory muscle usage. Clear to auscultation bilaterally without wheezing, crackles, or rhonchi. Gastrointestinal: Soft, nontender, and nondistended in all 4 quadrants. Normoactive bowel sounds in all 4 quadrants. Musculoskeletal: Normal range of motion in joints throughout the body. No deformity or other signs of injury. Neuro: Alert and oriented x4. Cranial nerves 2-12 grossly intact. No focal deficits appreciated. Psych: Normal mood and affect. Vital Signs: Last Vital Signs Temp 98.7 F 01/27/25 14:09 Pulse 83 01/27/25 14:09 BP 150/80 H 01/27/25 14:09 Pulse Ox 98 01/27/25 14:09 Office Procedures EKG Details: NSR with premature atrial contractions at 75 bpm, no STEMI. Unchanged from prior EKG. [id number], Complete Assessment & Plan Assessment & Plan (1) Heartburn: Code(s): R12 - Heartburn Plan 84-year-old female who presented to the walk-in clinic complaining of indigestion and heartburn x 2 days. Her history and phsyical are most consistent with heartburn/esophagitis given her description of symptoms. I increased patient's dose of PO omeprazole from 20 mg to 40 mg for 10 days and added PO famotidine 40 mg every night at bedtime x 10 days. An EKG was also obtained to rule out any cardiac event and was negative for STEMI. Patient instructed to proceed directly to the emergency room if she were to develop chest pain radia ting in her arms or associated with nausea and diaphoresis. She was also advised to proceed to the emergency room if she were to develop abdominal pain, worsening diarrhea, melena, or hematochezia. Patient verbalized understanding and is agreeable with the plan. Orders: Orders AMB EKG-In Office Today Z13.6 - Encounter for screening for cardiovascular disorders Medications: New famotidine 40 mg PO BEDTIME 10 tabs 0RF omeprazole 40 mg PO DAILY 10 caps 0RF Patient Instructions: 1. Take an extra dose of omeprazole 20 mg tonight (01/27/25). 2. Take omeprazole 40 mg (2 x 20mg tablets) tomorrow morning (01/28/25). 3. calender wind up tender omeprazole 40 mg tablets and famotidine 40 mg tablets at [facility] tomorrow morning. 4. Take famotidine 40 mg tablet at bedtime. Coding Level of Care Code Est Pt Level 3 (21426) Diagnoses Heartburn R12 CPT Codes EKG - CPT: 94313-[id number], Complete ([id number])
--- OUTSIDE RECORDS SUMMARY | 2025-01-27 14:09 | XMS_ITS ---
Author Name [facility] Organization Unknown Care Team Organization Name Specialty Phone Email Start Date End Da te [facility] Sandro Calvo Primary Care 01/27/2022
--- OUTSIDE RECORDS SUMMARY | 2025-01-27 14:09 | XMS_ITS | Patient Health Record ---
Author Organization [facility] Address [address] [place] [address] Care Team Providers Care Cable Weaver Name Role Phone Sandro Wasserman Primary Care Provider Unav guichoharry celioRohangabrielleuriel Kulwant Unavailable [phone] Allergies Allergen (clinical drug ingredient) Drug/Non Drug Allergy documented on EMR Reaction Allergy Type Onset Date Status Iodine Unknown Drug Allergy Active Tetanus Toxoids Unknown Drug Allergy A ctive Reason For Referral No Information Medications Medication SIG (Take, Route, Frequency, Duration) Notes Start Date End Date Status Parafon Forte DSC Ac tive Lexapro 5 MG 1 tablet Orally Once a day; Duration: 30 day(s) Active oxyCODONE-Acetaminophen 5-325 MG 1 tablet as needed Orally every 6 hrs Active PriLOSEC OTC 20 MG 1 tablet 30 minutes before morning meal Orally Once a day; Duration: 30 day(s) Active KlonoPIN 0.5 MG 1 tablet at bedtime Orally Once a day Active Social History Tobacco Use: Social History Observation Description Date Details (start date - stop date) Former Smoker NA - NA Tobacco Use/Smoking Question Answer Notes Are you a: former smoker Additional Findings: Tobacco Non-User Current no n-smoker Alcohol Screen Question Answer Notes Did you have a drink containing alcohol in the p ast year? No Points 0 Interpretation Negative Problems Problem Type SNOMED Code ICD Code Onset Dates Problem Status W/U Status Risk Notes Problem Fibromyalgia (100430893) Fibromyalgia (M79.7) Active confirmed Problem Acquired hammer toe of right foot (7248430931909308 ) Hammer toe of right foot (M20.41) Active confirmed Problem Acquired hammer toe of left foot ([id number] ) Hammer toe of left foot (M20.42) Active confirmed Problem Localized, primary osteoarthritis of the ankle and/or foot (243375366) Osteoarthritis of left ankle and foot (M19.072) Active confirmed Plan Of Treatment Pending Test Test Name Order Date X ray : Foot, left 3V 10/17/2021 Insurance Providers Payer Name Payer Address Payer Phone Subscriber Number Group Number Insured Name Patient Relationship to Insured Coverage Start Date Coverage End Date Medicare National [employer] [address] [place] [address] [id number] Daphne Martinez Self - patient is the insured Angelia [address] [place] [phone] [id number] Jimmy Martinez Spouse - patient is the spouse of the insured Medical (General) History Medical History History ICD Code Anxiety osteoarthritis Back,Hip,and Knee pain Broken bones Cancer Cataracts covid-19 Depression Diverticulitis Diverticulosis High blood pressure Osteoporosis Reflux ( GERD) Stomach ulcer Warts Measles Mumps Chicken pox Surgical History Surgery Date(Month/Year) right shoulder 10/12/2006 colon cancer 05/21/2015 abdominal hernia 10/18/2017 right wrist 08/19/2013 plate removed from right wrist 5
--- OUTSIDE RECORDS SUMMARY | 2025-01-27 14:09 | XMS_ITS | Clinical Summary ---
Author Organization [facility] Address [address] [place] [address] Care Team Providers Care Tool Supervisor Name Role Phone Sandro Calvo PA-C Primary Care Provider Allergies Active Allergy Reactions Criticality Noted Date Comments Iodinated Contrast Media 09/09/2016 Tetanus Immune Globulin 09/09/2016 Medications Medication Sig Dispensed Refills Start Date End Date Status chlorzoxazone (PARAFON FORTE) 500 MG tablet Take 500 mg by mouth 4 (four) times a day as needed for muscle spasms. 0 Active clonazePAM (KlonoPIN) 0.5 MG tablet Take 0.5 mg by mouth as needed for anxiety. 0 Active Biotin 1 MG CAPS Take by mouth. 0 Acti ve Coenzyme Q10 (COQ10) 50 MG CAPS Take 50 mg by mouth 2 (two) times a day. 0 Active melatonin 3 MG TABS tablet Take 3 mg by mouth every evening as needed. 0 Active Calcium Carbonate-Vit D-Min (CALCIUM/VITAMIN D/MINERALS) 600-200 MG-UNIT TABS Take by mouth daily. 0 Active Flaxseed, Linseed, (FLAXSEED OIL PO) Take by mouth. 0 Act fiona [place] 3 1000 MG CAPS Take by mouth. 0 Active cholecalciferol (VITAMIN D3) 1000 UNITS tablet Take 1,000 Units by mouth 2 (two) times a day. 0 Active vitamin C (ASCORBIC ACID) 500 MG tablet Take 500 mg by mouth daily. 0 Active Kristel, Zingiber officinalis, (KRISTEL PO) Take by mouth daily. 0 Active TURMERIC PO Take by mouth as needed. 0 Active Multiple Vitamin (MULTI VITAMIN DAILY PO) Take by mouth. 0 Active Omeprazole 20 MG TBDD Take by mouth. 0 Active oxyCODONE-acetaminophe n (PERCOCET) 5-325 MG per tablet 0 09/02/2018 Active lidocaine (XYLOCAINE) 5 % ointment 0 08/02/2018 Active PROCTOZONE-HC 2.5 % rectal cream 0 08/02/2018 Active Active Problems Problem Noted Date Diagnosed Date Hemorrhoids 12/06/2018 Closed displaced comminuted fracture of left pat laura 08/18/2018 Abnormal x-ray 08/17/2018 Right inguinal hernia 05/27/2017 Colon cancer metastasized to intra-abdominal lym ph node 09/09/2016 Anxiety 04/17/2016 Malignant neoplasm of ascending colon 05/30/2015 Depression 05/21/2010 Neck pain 04/01/2007 Pain in shoulder 04/01/2007 Keratoconjunctivitis sicca, not specified as Sjo gren's 07/13/2006 Irritable bowel syndrome 05/26/2005 Family History Relation Name Status Comments Brother Father Mother Sister Alive Social History Tobacco Use Types Packs/Day Years Used Date Smoking Tobacco: Former Smokeless Tobacco: Former Alcohol Use Standard Drinks/Week Comments Yes 0 (1 standard drink = 0.6 oz pur e alcohol) Sex and Gender Information Value Date Recorded Sex Assigned at Not on file Gender Identity Not on file Sexual Orientation Not on file Job Start Date Occupation Industry Not on file Not on file Not on file Last Filed Vital Signs Vital Sign Reading Time Taken Comments Blood Pressure 164/70 02/18/2022 9:45 AM EST Pulse 69 02/18/2022 9:45 AM EST Temperature 36.7 C (98.1 F) 02/18/2022 9:45 AM EST Respiratory Rate - - Oxygen Saturation 100% 08/08/2021 10:36 AM EDT Inhaled Oxygen Concentration - - Weight 57.2 kg (126 lb) 02/18/2022 9:45 AM EST Height 160 cm (5' 3 ) 02/18/2022 9:45 AM EST Body Mass Index 22.32 02/18/2022 9:45 AM EST Plan of Treatment Health Maintenance Due Date Last Done Comments Depression Screening 1952 Preventative Health Evaluation 1957 DTap / Tdap / Td (1 - Tdap) 1958 Fall Risk Assessment 2004 Osteoporosis Screening (DEXA Scan) 2004 RSV Adult > 60+ Yrs or (1 - 1-dose 75+ series) 2014 Shingrix-Zoster Vaccine (2 of 2) 12/26/2020 10/31/2020 COVID-19 Vaccine ( - 2024- season) 2024 03/05/2021, 05/27/2020, 05/07/2020 Influenza Vaccine (#1) 2024 3, 01/11/2022, 12/24/2020, Additional history exists Pneumococcal Vaccine Completed 08/19/2016, 05/22/19 10 Hepatitis B Vaccines Aged Out No long er eligible based on patient's age to complete this topic RSV Ped < 20 months Aged Out No longe r eligible based on patient's age to complete this topic Care Teams Tool Supervisor Relationship Specialty Start Date End Date Sandro Calvo, ROQUEC PCP - General Medical Services 08/06/20
== END 2025-01-27 14:58 | disposition home or self-care (01) ==
LOC: HO.HMCWIC 14:07
PROVIDERS: PCP Physician Assistant Medical; Visit Provider Physician Assistant Medical
DX: R12 Heartburn (principal)

== ENCOUNTER → 2025-01-27 14:07 | Outpatient (BNVA) | payer MEDICARE, SELFPAY | PROVIDERS: PCP Physician Assistant Medical; Visit Provider Physician Assistant Medical | DX: R12 Heartburn (principal); G89.29 Other chronic pain; R19.7 Diarrhea, unspecified; Z79.891 Long term (current) use of opiate analgesic | CPT/HCPCS: 93005; 99212 ==